=== PATIENT | female | born 1970 | race American Indian/Alaskan Native ===

== ENCOUNTER 2016-08-12 08:41 | Day surgery (SDC) | payer MEDICAID ==
[2016-08-11 17:31] LABS: Hematocrit 25.9 % (30.3-42.9)
[2016-08-12] MEDS ORDERED: TYLENOL PO ONE (09:12)
[2016-08-12] MEDS ORDERED: BENADRYL PO ONE (09:12)
[2016-08-12] MEDS ORDERED: NACL 0.9% 250ML 250 ML IV ONE (09:13)
[2016-08-12 13:59] VITALS: BP 117/60
== END 2016-08-12 13:55 | disposition home or self-care (01) ==
LOC: OPU 08:41 → EDSTATUS 09:30 → OPU 13:55
PROVIDERS: ATTEND Internal Medicine Hematology & Oncology
DX: D64.9 Anemia, unspecified (principal)
CPT/HCPCS: 36415; 36430; 85014; 85018; 86850; 86900; 86901; 86920; J7050; P9016

== ENCOUNTER 2016-11-18 09:02 | Emergency (ER) | payer MEDICAID ==
--- NOTE | 2016-11-18 09:58 | Emergency Department Report ---
Entered by SEB SAEZ, acting as scribe for BETY WALL NP. Stated Complaint: PAIN ALL OVER Time Seen by Provider: 11/18/16 09:20 - HPI History of Present Illness: 46 y/o female presents c/o chronic, constant, pain all over the body. Pt notes left arm pain, swelling in left arm, pain in legs. She denies trauma to the body. Pt is ambulatory and states she is out of her 7.5 mg percocet. She has no pain management MD Was on perc by pcp but out of it Reports problems w referrals for her insurance [facility] chronic pain, RA, sarcoid vss. nad. ambulatory. - ROS Review of Systems: as noted in HPI. - Exam Vital Signs: Vital Signs 11/18/16 09:20 Temperature 98.1 F Pulse Rate 73 Respiratory 18 Rate Blood Pressure 121/83 O2 Sat by Pulse 100 Oximetry MSE screening note: Focused history and physical exam performed. Due to findings the following was ordered: ambulatory vss nad maew no focal neuro def ED Disposition for MSE Condition: Stable This documentation as recorded by the scribe,SEB SAEZ,accurately reflects the service I personally performed and the decisions made by me,BETY WALL NP.
[2016-11-18] MEDS ORDERED: DELTASONE PO ONE (11:27)
[2016-11-18] MEDS ORDERED: PERCOCET 5/325 PO ONE (11:27)
--- NOTE | 2016-11-18 11:27 | Emergency Department Report ---
HPI - General Chief Complaint: Pain General Time Seen by Provider: 11/18/16 11:09 - HPI HPI: Patient here complaining of body pain for several days. She said that she doesn 't have pain management doctor or wool puller. Her primary care physician is Dr. Roberts. Patient complaining that she has a history of chronic rheumatoid arthritis and sarcoidosis and she gets flareups from time to time. She says she is out of her pain medication which is Percocet 7.5/325 mg. She is complaining the left arm and right knee pain but she said it's generalized all over her body at 6 out of 10. Denies trauma. Denies any back pain or neck pain. Denies any fever or chills. ED Past Medical Hx - Past Medical History Previous Medical History?: Yes Hx GERD: Yes Hx Arthritis: Yes Additional medical history: anemia, sarcodosis. RA - Surgical History Past Surgical History?: Yes Additional Surgical History: right shoulder. right knee surgery. partial thyroid removal. biopsy of right breast. gastric sleeve - Family History Family history: hypertension - Social History Smoking Status: Never Smoker Substance Use Type: None - Medications Home Medications: Home Medications Medication Instructions Recorded Confirmed Last Taken Type Ferrous Sulfate [Feosol] 325 mg PO BID 06/03/15 06/03/15 Unknown History Zolpidem [Ambien] 5 mg PO QHS PRN 06/03/15 06/03/15 Unknown History Oxycodone HCl/Acetaminophen 1 each PO Q6HR PRN #12 tablet 11/18/16 Unknown Rx [Percocet 7.5/325 mg] ED Review of Systems ROS: Stated complaint: PAIN ALL OVER Other details as noted in HPI Comment: All other systems reviewed and negative Constitutional: denies: chills, fever ENT: denies: throat pain Respiratory: no symptoms reported Cardiovascular: denies: chest pain, palpitations, edema, syncope Gastrointestinal: denies: abdominal pain, nausea, vomiting, diarrhea Musculoskeletal: arthralgia. denies: back pain, joint swelling Skin: denies: rash Neurological: denies: headache, weakness, numbness, paresthesias, confusion, abnormal gait, vertigo Physical Exam - Physical Exam Vital Signs: Vital Signs 11/18/16 09:20 Temperature 98.1 F Pulse Rate 73 Respiratory 18 Rate Blood Pressure 121/83 O2 Sat by Pulse 100 Oximetry General: This is a 46-year-old female well-nourished well-developed in no acute distress. Physical Exam: Head: Normocephalic atraumatic Mouth: Moist, no pharyngeal exudate or erythema. Uvula is midline and oral airway is patent. No facial swelling. No peritonsillar abscesses. Neck: Supple, no C-spine tenderness, no tracheal deviation. Nontender to palpate. no adenopathy Abdomen: Soft, nontender to palpate in all quadrants, normal bowel sounds in all quadrant and negative CVA tenderness bilaterally. Back: No vertebral or paraspinal tenderness. No saddle anesthesia. Patient able to ambulate without any difficulties. Negative SLR bilaterally. Eyes: Bilateral pupils equal and reactive to light, bilateral EOM intact. Bilateral sclera and conjunctiva without injection. Normal accommodation. Lungs: Clear to auscultate bilaterally no rhonchi wheezes or rales. Normal work of breathing MSK: Patient with full range of motion to all extremities. No deformities noted. 5/5 movement to all extremities.. extremity; No CCE. +2 pulses. No neurovascular compromise. Good color movement sensation in temperature to extremities. No joint swelling. No erythema. Cardiovascular: S1-S2, regular rate rhythm. No murmurs. Skin: clean Dry and intact no rash no lesions Psych: Normal mood and behavior ED Course Vital Signs 11/18/16 09:20 Temperature 98.1 F Pulse Rate 73 Respiratory 18 Rate Blood Pressure 121/83 O2 Sat by Pulse 100 Oximetry - Reevaluation(s) Reevaluation #1: 11/18/16 11:40 She given Percocet 5/325 mg 2 tablets in emergency room along with Deltasone. ED Medical Decision Making - Medical Decision Making ED course: Patient with chronic pain with acute flare. Her diagnosis is arthralgia multiple sites. She was given Percocet 5/325 2 tablets and Deltasone 60 mg in emergency room. Discussed with patient that she is going to need to follow-up with her primary care physician who is Dr. Roberts for referral to medical scientific officer and possible pain management. Patient discharged home in stable condition with prescription for Percocet No. 12 tablets. Critical care attestation.: If time is entered above; I have spent that time in minutes in the direct care of this critically ill patient, excluding procedure time. ED Disposition Clinical Impression: Arthralgia of multiple sites, bilateral Chronic pain Qualifiers: Chronic pain type: chronic pain syndrome Qualified Code(s): G89.4 - Chronic pain syndrome Disposition: DISCHARGED TO HOME OR SELFCARE Is pt being admited?: No Does the pt Need Aspirin: No Condition: Stable Instructions: Chronic Pain (ED), Rheumatoid Arthritis (ED), Sarcoidosis (ED) Additional Instructions: Please follow-up with your primary care physician for referral to medical scientific officer and possible pain specialist Please take medication as prescribed and did not drive or operative heavy machinery S medication can cause drowsiness. Prescriptions: Oxycodone HCl/Acetaminophen [Percocet 7.5/325 mg] 1 each PO Q6HR PRN #12 tablet PRN Reason: Pain Referrals: PRIMARY CARE,MD [Primary Care Provider] - 3-5 Days Forms: Work/School Release Form(ED), Accompanied Note
[2016-11-18 12:02] VITALS: BP 118/74
== END 2016-11-18 12:01 | disposition home or self-care (01) ==
LOC: ED 09:02
DX: M79.602 Pain in left arm (principal); M25.561 Pain in right knee; G89.4 Chronic pain syndrome; K21.9 Gastro-esophageal reflux disease without esophagitis; M19.90 Unspecified osteoarthritis, unspecified site
CPT/HCPCS: 99282; J7512

== ENCOUNTER 2017-11-03 15:23 | Emergency (ER) | payer MEDICAID ==
[2017-11-03 15:35] VITALS: BP 123/84
--- NOTE | 2017-11-03 17:02 | Emergency Department Report ---
Blank Doc - Documentation Documentation: This is a 47-year-old female who is presenting with right Listeria knee and leg discomfort. Head is inguinal for almost a month. Patient states she is from [place] and she did recently drive to go down to [place]. Patient states this pain is gotten worse since then. Unfortunately is after the time that the ultrasound for rule out DVT to be done here in this hospital. Instead of ultrasound and we elected to do a d-dim. The patient's d-dimer is negative and essentially rules her out for DVT.
--- NOTE | 2017-11-03 17:57 | XRay Report ---
FINAL REPORT EXAM: XR KNEE 3V RT HISTORY: Right knee pain and swelling TECHNIQUE: AP, oblique, and lateral views of the right knee PRIORS: None. FINDINGS: No acute fracture or dislocation is seen. The soft tissues demonstrate a tiny suprapatellar joint effusion. Joint spaces are maintained and bony mineralization is normal. IMPRESSION: No acute bony abnormality of the right knee. Tiny joint effusion.
--- NOTE | 2017-11-03 18:35 | Emergency Department Report ---
ED Extremity Problem HPI - General Chief complaint: Extremity Injury, Lower Stated complaint: RIGHT KNEE PAIN Time Seen by Provider: 11/03/17 15:52 Source: patient Mode of arrival: Ambulatory Limitations: No Limitations - History of Present Illness Initial comments: This is a 47-year-old female who is presenting with right knee and leg discomfort. This is been present for approximately almost a month. Patient states she is from [place] and she did recently drive to go down to [place]. Patient states this pain is gotten worse since then. He states that the majority of the pain in her knees in the posterior knee. Patient states that she can bear weight but is painful. Patient denies any nausea vomiting fevers chills chest pain cough at this time. - Related Data Home Medications Medication Instructions Recorded Confirmed Last Taken Ferrous Sulfate [Feosol] 325 mg PO BID 06/03/15 06/03/15 Unknown Zolpidem [Ambien] 5 mg PO QHS PRN 06/03/15 06/03/15 Unknown Previous Rx's Medication Instructions Recorded Last Taken Type Oxycodone HCl/Acetaminophen 1 each PO Q6HR PRN #12 tablet 11/18/16 Unknown Rx [Percocet 7.5/325 mg] traMADol [Ultram] 50 mg PO Q6HR PRN #12 tablet 11/03/17 Unknown Rx Allergies Allergy/AdvReac Type Severity Reaction Status Date / Time No Known Allergies Allergy Verified 08/12/16 09:04 ED Review of Systems ROS: Stated complaint: RIGHT KNEE PAIN Other details as noted in HPI Comment: All other systems reviewed and negative ED Past Medical Hx - Past Medical History Previous Medical History?: Yes Hx GERD: Yes Hx Arthritis: Yes Additional medical history: anemia, sarcodosis, right knee pain. RA - Surgical History Past Surgical History?: Yes Additional Surgical History: right shoulder. right knee surgery. partial thyroid removal. biopsy of right breast. gastric sleeve - Social History Smoking Status: Former Smoker Substance Use Type: Alcohol, Marijuana - Medications Home Medications: Home Medications Medication Instructions Recorded Confirmed Last Taken Type Ferrous Sulfate [Feosol] 325 mg PO BID 06/03/15 06/03/15 Unknown History Zolpidem [Ambien] 5 mg PO QHS PRN 06/03/15 06/03/15 Unknown History Oxycodone HCl/Acetaminophen 1 each PO Q6HR PRN #12 tablet 11/18/16 Unknown Rx [Percocet 7.5/325 mg] traMADol [Ultram] 50 mg PO Q6HR PRN #12 tablet 11/03/17 Unknown Rx ED Physical Exam - General Limitations: No Limitations General appearance: alert, in no apparent distress - Head Head exam: Present: atraumatic, normocephalic - Eye Eye exam: Present: normal appearance - ENT ENT exam: Present: mucous membranes moist - Neck Neck exam: Present: normal inspection - Respiratory Respiratory exam: Present: normal lung sounds bilaterally. Absent: respiratory distress, wheezes, rales, rhonchi - Cardiovascular Cardiovascular Exam: Present: regular rate, normal rhythm. Absent: systolic murmur, diastolic murmur, rubs, gallop - GI/Abdominal GI/Abdominal exam: Present: soft, normal bowel sounds. Absent: distended - Extremities Exam Extremities exam: Present: normal inspection, tenderness (some mild tenderness in the posterior knee on the right) - Back Exam Back exam: Present: normal inspection - Neurological Exam Neurological exam: Present: alert, oriented X3 - Psychiatric Psychiatric exam: Present: normal affect, normal mood - Skin Skin exam: Present: warm, dry, intact, normal color. Absent: rash ED Course Vital Signs 11/03/17 15:31 Temperature 97.9 F Pulse Rate 75 Respiratory 18 Rate Blood Pressure 123/84 O2 Sat by Pulse 100 Oximetry ED Medical Decision Making - Lab Data Lab Results 11/03/17 Range/Units 17:17 D-Dimer 249.64 H (0-234) ng/mlDDU - Radiology Data Radiology results: report reviewed Patient's knee x-ray shows some mild effusion - Medical Decision Making Patient has a d-dimer that was within normal limits is under 250 ruling out DVT. X-ray does not show any bony malleoli but there is a mild to moderate effusion. Patient may have had a Piedra's cyst is ruptured at this time. Patient be given pain meds will do Rice therapy he'll be discharged for follow- up with orthopedic. Critical care attestation.: If time is entered above; I have spent that time in minutes in the direct care of this critically ill patient, excluding procedure time. ED Disposition Clinical Impression: Knee effusion Disposition: DC- TO HOME OR SELFCARE Is pt being admited?: No Does the pt Need Aspirin: No Condition: Stable Instructions: Knee Effusion (ED), RICE Therapy (ED) Prescriptions: traMADol [Ultram] 50 mg PO Q6HR PRN #12 tablet PRN Reason: Pain Referrals: PRIMARY CARE,MD [Primary Care Provider] - 3-5 Days
== END 2017-11-03 18:39 | disposition home or self-care (01) ==
LOC: ED 15:23
DX: M25.461 Effusion, right knee (principal); K21.9 Gastro-esophageal reflux disease without esophagitis; F12.10 Cannabis abuse, uncomplicated; M19.90 Unspecified osteoarthritis, unspecified site; E89.0 Postprocedural hypothyroidism; Z87.891 Personal history of nicotine dependence
CPT/HCPCS: 36415; 85379; 99284

== ENCOUNTER 2021-05-07 15:49 | Outpatient (CLI) | payer BC ==
--- NOTE | 2021-05-10 11:08 | XRay Report ---
RIGHT KNEE 4 VIEW(S) INDICATION / CLINICAL INFORMATION: M25.569 PAIN IN UNSPECIFIED KNEE COMPARISON: None available. FINDINGS: BONES / JOINT(S): No acute fracture or subluxation. Mild osteoarthritic change of the medial and rodriguez llofemoral compartments. SOFT TISSUES: No significant abnormality. ADDITIONAL FINDINGS: None. Signer Name: Jasen Lema DO Signed: 05/10/2021 11:03 AM Workstation Name: [id number]
== END 2021-05-07 15:50 | disposition home or self-care (01) ==
LOC: XRAY 15:49
PROVIDERS: ATTEND Orthopaedic Surgery
DX: M17.0 Bilateral primary osteoarthritis of knee (principal)
CPT/HCPCS: 73565

== ENCOUNTER 2022-02-03 13:14 | Outpatient (CLI) | payer BC ==
--- NOTE | 2022-02-03 17:07 | Magnetic Resonance Report ---
MRI RIGHT KNEE WITHOUT CONTRAST INDICATION / CLINICAL INFORMATION: M25.562RT KNEE PAIN AND SWELLING. TECHNIQUE: Multiplanar, multisequence MR images were obtained. No contrast used. COMPARISON: Radiograph dated 05/07/21 FINDINGS: ACL: No significant abnormality. PCL: No significant abnormality. DISTAL QUADRICEPS TENDON: No significant abnormality. PATELLAR TENDON: No significant abnormality. MEDIAL MENISCUS: Degenerative fraying of the posterior horn with focal degenerative tear near the pos terior root. Minimal meniscal extrusion. LATERAL MENISCUS: No significant abnormality. MCL: No significant abnormality. LCL / DISTAL IT BAND: No significant abnormality. PATELLOFEMORAL ALIGNMENT: No significant abnormality. ARTICULAR CARTILAGE: Moderately advanced patellofemoral chondrosis and degenerative arthrosis. Mild m edial compartment chondrosis and degenerative arthrosis. JOINT SPACE: Small joint effusion. No significant popliteal cyst. No intra-articular bodies. BONES: No significant bone marrow edema. No fracture. No osseous lesion. SOFT TISSUES: No significant abnormality. ADDITIONAL FINDINGS: None. IMPRESSION: 1. Degenerative fraying of the posterior horn of the medial meniscus with focal degenerative tear josef r the posterior root. 2. Moderately advanced patellofemoral degenerative arthrosis. Mild medial compartment degenerative ar throsis. 3. Small joint effusion. Signer Name: Yasmeen Benitez MD Signed: 02/03/2022 5:03 PM Workstation Name: [id number]
--- NOTE | 2022-02-03 17:42 | Magnetic Resonance Report ---
MRI LEFT KNEE WITHOUT CONTRAST INDICATION / CLINICAL INFORMATION: M25.562 LT KNEE PAIN & SWELLING. TECHNIQUE: Multiplanar, multisequence MR images were obtained. No contrast used. COMPARISON: None available. FINDINGS: ACL: No significant abnormality. PCL: No significant abnormality. DISTAL QUADRICEPS TENDON: No significant abnormality. PATELLAR TENDON: No significant abnormality. MEDIAL MENISCUS: Degenerative tear of the superior surface of the posterior horn with small superior meniscal flap displaced toward the intercondylar notch best visualized on coronal series 3 image 10. LATERAL MENISCUS: No significant abnormality. MCL: No significant abnormality. LCL / DISTAL IT BAND: No significant abnormality. PATELLOFEMORAL ALIGNMENT: No significant abnormality. ARTICULAR CARTILAGE: Moderate patellofemoral chondrosis and degenerative arthrosis. Mild medial and l ateral compartment chondrosis. JOINT SPACE: Small joint effusion. No significant popliteal cyst. No intra-articular bodies. BONES: No significant bone marrow edema. No fracture. No osseous lesion. SOFT TISSUES: No significant abnormality. ADDITIONAL FINDINGS: None. IMPRESSION: 1. Degenerative tear of the posterior horn of the medial meniscus with small meniscal flap. 2. Moderate patellofemoral degenerative arthrosis. 3. Small joint effusion. Signer Name: Yasmeen Benitez MD Signed: 02/03/2022 5:38 PM Workstation Name: [id number]
== END 2022-02-03 13:15 | disposition home or self-care (01) ==
LOC: MRI 13:14
PROVIDERS: ATTEND Orthopaedic Surgery
DX: S83.242A Other tear of medial meniscus, current injury, left knee, initial encounter (principal); S83.241A Other tear of medial meniscus, current injury, right knee, initial encounter; M17.0 Bilateral primary osteoarthritis of knee; M25.462 Effusion, left knee; M25.461 Effusion, right knee; X58.XXXA Exposure to other specified factors, initial encounter; Y93.89 Activity, other specified; Y92.89 Other specified places as the place of occurrence of the external cause; Y99.8 Other external cause status
CPT/HCPCS: 73721

== ENCOUNTER 2022-03-25 15:14 | Outpatient (CLI) | payer BC ==
--- NOTE | 2022-03-25 15:59 | XRay Report ---
CHEST 2 VIEWS INDICATION / CLINICAL INFORMATION: PRE OP CLEARANCE. COMPARISON: None available. FINDINGS: SUPPORT DEVICES: None. HEART / MEDIASTINUM: No significant abnormality. LUNGS / PLEURA: No significant pulmonary or pleural abnormality. No pneumothorax. ADDITIONAL FINDINGS: Previous right rotator cuff repair changes are noted. IMPRESSION: 1. Unremarkable chest films. Signer Name: River Sky Jr, MD Signed: 03/25/2022 3:55 PM Workstation Name: [id number]
== END 2022-03-25 15:15 | disposition home or self-care (01) ==
LOC: XRAY 15:14
PROVIDERS: ATTEND Nurse Practitioner Family
DX: Z01.818 Encounter for other preprocedural examination (principal)
CPT/HCPCS: 71046

== ENCOUNTER 2022-04-10 06:18 | Day surgery (SDC) | payer BC ==
[~2022-04-10 06:18] MED LIST: ACETAMINOPHEN 500 MG TAB PO SCH; LACTATED RINGERS 1,000 ML IV SCH; MELOXICAM 7.5 MG TAB PO SCH; MIDAZOLAM 2 MG/2 ML INJ IV NR; PREGABALIN 25 MG CAP PO SCH; SCOPOLAMINE TRANSDERMAL PATCH 72 HR TD NR
[2022-04-10] MEDS ORDERED: diphenhydrAMINE 50 MG/ML VIAL IV PRN (07:31)
--- NOTE | 2022-04-10 07:31 | Anesthesia Day of Surgery ---
Anesthesia Day of Surgery - Day of Surgery Patient Examined: Yes Patient H&P Reviewed: Yes Patient is NPO: Yes
--- NOTE | 2022-04-10 07:31 | Anesthesia Consultation ---
Anesthesia Consult and Med Hx Date of service: 04/10/22 - Airway Anesthetic Teeth Evaluation: Good, Caps ROM Head & Neck: Adequate Mental/Hyoid Distance: Adequate Mallampati Class: Class I Intubation Access Assessment: Good - Pre-Operative Health Status ASA Pre-Surgery Classification: ASA3 Proposed Anesthetic Plan: General - Pulmonary Hx Smoking: Yes (quit cigs 2013; currently vapes) Hx Respiratory Symptoms: No Hx Sleep Apnea: Yes (no CPAP) - Cardiovascular System Hx Hypertension: No - Central Nervous System Hx Neuromuscular Disorder: No (sarcoidosis, RA, fibromyalgia; no recent steroid use) CVA: No - Gastrointestinal Hx Gastroesophageal Reflux Disease: Yes (asymptomatic today) - Endocrine Hx Renal Disease: No Hx Liver Disease: No Hx Insulin Dependent Diabetes: No Hx Non-Insulin Dependent Diabetes: No Hx Thyroid Disease: No - Hematic Hx Anemia: Yes - Other Systems Hx Obesity: Yes - Additional Comments Anesthesia Medical History Comments: Hx PONV. Preop medical eval on chart reviewed.
[2022-04-10] MEDS ORDERED: BUPIVACAINE/PF (0.5%) 5 MG/1 ML 10 ML VIAL INFILTRATI ONE ×2 (07:54→09:03)
[2022-04-10] MEDS ORDERED: LIDOCAINE (2%) 20 MG/1 ML VIAL 20 ML MDV INFILTRATI ONE ×2 (07:54→09:03)
[2022-04-10] MEDS ORDERED: EPINEPHrine/PF 1 MG/1 ML INJ ONE (07:55)
[2022-04-10] MEDS ORDERED: oxyCODONE /ACETAMINOPHEN 5-325MG TAB PO NR (08:00)
[2022-04-10] MEDS ORDERED: ceFAZolin/STERILE WATER 2 GM/20 ML SYRINGE IV NR (08:00)
[2022-04-10] MEDS ORDERED: HYDROmorphone 0.5 MG/0.5 ML INJ IV PRN (08:00)
[2022-04-10] MEDS ORDERED: ONDANSETRON 4 MG/2 ML INJ IV NR (08:00)
[2022-04-10] MEDS ORDERED: propofoL 200 MG/20 ML VIAL IV ONE (08:15)
[2022-04-10] MEDS ORDERED: fentaNYL 100 MCG/2 ML INJ ONE (08:24)
[2022-04-10] MEDS ORDERED: SODIUM CHLORIDE 0.9% IRRIG SOLN 2000 ML IR ONE ×2 (09:01)
[2022-04-10] MEDS ORDERED: EPINEPHrine/PF 1 MG/1 ML INJ IRRIGATION ONE (09:02)
[2022-04-10] MEDS ORDERED: LIDOCAINE MPF (2%) 20 MG/1 ML VIAL 5 ML ONE (09:38)
[2022-04-10] MEDS ORDERED: ONDANSETRON 4 MG/2 ML INJ ONE (09:38)
[2022-04-10] MEDS ORDERED: KETOROLAC 30 MG/1 ML INJ ONE (09:38)
[2022-04-10] MEDS ORDERED: dexAMETHasone 20 MG/5 ML VIAL ONE (09:38)
--- NOTE | 2022-04-10 10:52 | Post Operative Note ---
Pre-op diagnosis: Right knee medial meniscus tear, osteoarthritis, patellofemoral syndrome Post-op diagnosis: other (Right knee medial and lateral meniscus tear, right knee osteoarthritis, patellofemoral syndrome) Findings: Severe arthritic changes in the medial femoral condyle, trochlear groove, patella, medial aspect of lateral femoral condyle. Degenerative tear of the posterior horn of the lateral meniscus, degenerative tear of the posterior medial meniscus Procedure: Right knee arthroscopic medial and lateral partial meniscectomy, tricompartmental chondroplasty, open lateral release Anesthesia: WAYNE Surgeon: MAHENDRA AMOR Grocery Cashier: JAMI MURCIA Estimated blood loss: minimal Pathology: none Condition: stable Disposition: PACU
--- NOTE | 2022-04-10 11:14 | Operative Report ---
Operative Report Operative Report: Patient Name: Barb Ventura Date of : 1970 Date of Surgery: 04/10/2022 Pre-Operative Diagnosis: Right knee osteoarthritis, right knee medial meniscus tear, right knee patellofemoral syndrome Post-Operative Diagnosis: Right knee osteoarthritis, right knee medial and lateral meniscus tear, right knee patellofemoral syndrome Procedure: Right knee arthroscopic medial partial meniscectomy, lateral partial meniscectomy, tricompartmental chondroplasty, open lateral release Surgeon: Edi Rizvi DO Assistants: Mesha Payne PA-C EBL: minimal Complications: None Anesthesia: GETA Implants: None Tourniquet Time: 100 minutes Indications: This is a 51-year-old female who presented with worsening right knee pain over the last 4 to 5 years. Patient had pain that was worse with ambulation, stairs, standing for long periods of time. Patient has a history of a prior right knee arthroscopic surgery done by a different surgeon. Patient's pain was initially relieved but then returned. Patient has also tried [id number] pain medication, home exercise program, activity modifications without any relief. 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 Preoperative MRI demonstrated medial meniscus tear, tricompartmental degenerative joint disease. On physical exam patient had signs of patellar maltracking. Patient elected to undergo right knee surgery. Patient was met in the preoperative holding area where the risk, benefits, alternatives to surgery were explained to the patient in detail. Risks include but are not limited to infection, bleeding, neurovascular injury, soft tissue injury, infection, need for further surgery, need for total knee replacement in the future, fracture, dislocation, pain, stiffness, loss of limb, loss of life. Informed consent was obtained after all questions were thoroughly answered. Procedure: Patient was placed supine on the operating room table and all bony prominences were well-padded. The right lower extremitiy was prepped and draped in the usual sterile fashion. A timeout was performed by all members of the operating room team. An Esmarch bandage was used to wrap the right lower extremity and the tourniquet was inflated to 300 mmHg. An anterior lateral anterior medial portal site was palpated distal to the patella, on either side of the patellar tendon. Local anesthetic consisting of 2% lidocaine and half percent Marcaine without epinephrine was then injected into the portal sites. An 11 blade was then used to make her anterolateral portal. The trocar was then advanced into the notch and then into the patellofemoral joint. The camera was then inserted into the knee joint. We then began the diagnostic arthroscopy. Patient had severe grade 4 osteoarthritic changes within the patellofemoral joint both on the patellar side as well as the trochlear groove. There were no loose bodies in the medial and lateral gutters. Patient's patella was noted to be overhanging laterally. There were several large osteophytes noted along the articular margin of the distal femur. We then entered the medial compartment of the knee. At this time we inserted a spinal needle through our anterior medial portal site. A spinal needle was visualized with the arthroscope. A spinal needle was then removed and our anterior medial portal incision was then made. A probe was then put through the anterior medial portal. There were severe gr steve 4 cartilage damage on the distal medial femoral condyle with cartilage flaps hanging.. There is also degenerative tear at the posterior third of the medial meniscus. We then entered the femoral notch. Patient's ACL and PCL were intact. They were probed and found to be stable. The knee was then taken into valgus and the lateral compartment was entered. Overall the lateral compartment was in better shape than the medial compartment. There was an area of grade 4 cartilage damage on the medial aspect of the lateral femoral condyle. We then probed the lateral meniscus. There was another degenerative tear at the posterior horn of the lateral meniscus. We then removed the probe and put in a 4.0 meniscal shaver. We then shaved down the medial meniscus tear at the posterior one third junction. We also debrided the loose cartilage flaps off of the medial femoral condyle. An ArthroCare wand was then used to stabilize the periphery of the cartilage damage until there was no longer any loose cartilage flaps. The ArthroCare wand was then used to smooth in the area of the medial meniscus tear that was debrided. We then put the knee into valgus and into the lateral compartment. Meniscal shaver was then used to debride the loose flap of the posterior horn the lateral meniscus as well as the loose cartilage flaps in the distal femoral condyle. An ArthroCare wand was then used to smoothing the edges of the lateral meniscus tear and lateral femoral condyle. We then entered the patellofemoral compartment. The meniscal shaver was then used to again debride the trochlea as well as the patella. There was a large osteophyte on the inferior pole of the patella that made it difficult to do the lateral release arthroscopically with the ArthroCare wand. The lateral portal was then extended approximately 2 cm. Sharp dissection we went through the subcutaneous fat down to the level of the lateral retinaculum. Using an 11 blade lateral retinacular release was performed layer by layer until there was give at the patella sat symmetrically within the trochlear groove. The tourniquet was then let down. There was no active bleeding. The wounds were irrigated with normal saline. The cutaneous tissues were closed with 2-0 Vicryl. The skin was closed with 3-0 nylon. Sterile occlusive dressings were then placed over the incision sites. The right lower extremity was then wrapped with an Jose F wrap. The sponge and needle count were correct in the case. The patient was then awakened by the anesthesia team and taken to the recovery room in stable condition.
[2022-04-10 12:53] VITALS: BP 123/73
--- NOTE | 2022-04-10 14:24 | Post Anesthesia Evaluation ---
- Post Anesthesia Evaluation Patient Participated: Yes Airway Patent: Yes Stable Respiratory Function: Yes Nausea/Vomiting: No Temp > 96.8F: Yes Pain Manageable: Yes Adequeate Hydration: Yes Anesthesia Complications: No
== END 2022-04-10 12:50 | disposition home or self-care (01) ==
LOC: OR 06:18
PROVIDERS: ATTEND Orthopaedic Surgery
DX: M17.11 Unilateral primary osteoarthritis, right knee (principal); S83.241A Other tear of medial meniscus, current injury, right knee, initial encounter; G47.30 Sleep apnea, unspecified; K21.9 Gastro-esophageal reflux disease without esophagitis; E66.9 Obesity, unspecified; M79.7 Fibromyalgia; D64.9 Anemia, unspecified; Z87.891 Personal history of nicotine dependence; Z79.899 Other long term (current) drug therapy; Z68.33 Body mass index [BMI] 33.0-33.9, adult; Z98.890 Other specified postprocedural states; X58.XXXA Exposure to other specified factors, initial encounter; Y93.89 Activity, other specified; Y92.89 Other specified places as the place of occurrence of the external cause; Y99.8 Other external cause status
CPT/HCPCS: 27425; 29880; J0171; J0690; J1100; J1885; J2250; J2405; J2704; J3010; J3490; J7120